=== PATIENT | female | born 1985 | race Two or more races ===

== ENCOUNTER 2019-12-23 11:01 | Emergency (ER) | payer SELFPAY ==
[~2019-12-23] VITALS: Ht 167.6 cm; Wt 72.7 kg
[2019-12-23 11:25] VITALS: BP 144/58
--- NOTE | 2019-12-23 11:45 | PHYS DOC ---
Past Medical History Past Medical History: No Pertinent History Past Surgical History: No Surgical History Smoking Status: Light Tobacco Smoker Alcohol Use: None Adult General Chief Complaint Chief Complaint: COUGH HPI HPI Patient is a 34 year old female, accompanied by her Linda, who presents to the emergency department with complaints of body aches, fatigue, dry cough, headache, and nasal congestion since yesterday. Patient's daughter translates for the patient as she does not speak Haitian. The patient denies any chest pain, palpitations, shortness of breath, wheezing, nausea, vomiting, diarrhea, abdominal pain, sore throat, or ear pain. Currently denies any pain. The patient does currently smoke cigarettes she reports that she smokes less than a pack cigarettes a day. Review of Systems Review of Systems All other ROS is negative unless otherwise noted in HPI. Allergies Allergies Allergies Coded Allergies Type Severity Reaction Last Updated Verified No Known Drug Allergies 12/23/19 No Physical Exam Physical Exam See Above Constitutional: Well developed, well nourished, no acute distress, ill appearance, obese HENT: Normocephalic, atraumatic, bilateral external ears normal, bilateral TMs normal, posterior pharynx normal oropharynx moist, nose congested with erythema and edema of the nasal turbinates bilaterally Eyes: PERRLA, conjunctiva injected bilaterally, no discharge. [] Neck: Normal range of motion, no stridor. [] Cardiovascular:Heart rate regular rhythm, no murmur [] Lungs & Thorax: Bilateral breath sounds clear to auscultation, Respirations even and unlabored, no retractions, no respiratory distress Skin: Warm, dry, no erythema, no rash. [] Back: No tenderness Extremities: No cyanosis, ROM intact Neurologic: Alert and oriented X 3, no focal deficits noted. [] Psychologic: Affect normal, judgement normal, mood normal. Current Patient Data Vital Signs Vital Signs Date Time Temp Pulse Resp B/P (MAP) Pulse Ox O2 Delivery O2 Flow Rate FiO2 12/23/19 11:25 98.9 104 16 144/58 (86) 99 Room Air 98.9 EKG EKG [] Radiology/Procedures Radiology/Procedures [] Course & Med Decision Making Course & Med Decision Making Pertinent Labs and Imaging studies reviewed. (See chart for details) dx: medical screening exam A medical screening exam was performed, patient was found to have no emergent m edical condition. The plan of care would've included influenza instructions and supportive care recommendations. However, the patient eloped after talking with registration. [] [] [] Dragon Disclaimer Dragon Disclaimer This electronic medical record was generated, in whole or in part, using a voice recognition dictation system. Departure Departure Impression: Primary Impression: Encounter for medical screening examination Disposition: HOME, SELF-CARE Condition: STABLE (pt eloped after speaking with registration) Referrals: NO PCP (PCP) Patient Instructions: Medical Screening Exam CHARITO SALES APRN Dec 23, 2019 11:45
== END 2019-12-23 11:47 | disposition home or self-care (01) ==
LOC: ER 11:01 → EDBD 11:01 → ER 11:47
DX: R05 Cough (principal); R09.81 Nasal congestion; R51 Headache; R53.83 Other fatigue; R60.0 Localized edema; L53.9 Erythematous condition, unspecified; F17.210 Nicotine dependence, cigarettes, uncomplicated
CPT/HCPCS: 99281

== ENCOUNTER → 2021-09-19 | Outpatient (CLI) | payer SELFPAY ==
[~2021-09-19] MED LIST: DOCU-109 PO; FERR325T14 PO; IBUP-1027 PO; METH10TA32 PO; OXYC1TAB15 PO; PREN1TAB9 PO
== END ==
LOC: LAB 13:12
PROVIDERS: ATTEND Obstetrics & Gynecology
DX: Z01.812 Encounter for preprocedural laboratory examination (principal); Z20.822 Contact with and (suspected) exposure to COVID-19
CPT/HCPCS: U0003; U0005

== ENCOUNTER 2021-09-20 16:45 | Inpatient (IN) | payer SELFPAY ==
[~2021-09-20] VITALS: Ht 160 cm; Wt 111.9 kg
[2021-09-20 17:00] VITALS: BP 131/67
[2021-09-20] MEDS ORDERED: IV NORMAL SALINE 1000ML BAG 1,000 ML IV SCH (18:00)
[2021-09-20] MEDS ORDERED: CITRIC ACID/SODIUM CITRATE 30 ML SOLUTION. PO ONE (18:00)
--- NOTE | 2021-09-20 18:05 | PDOC1 ---
NIP[facility] [employer]ER H&P Date of Admission: Date of Admission: Sep 20, 2021 at 16:45 History of Present Illness: EDC: 09/23/21 LMP: 12/17/20 36y @ 39.4 by L=19 presents for scheduled indxn. The pt was dxed with Yina's in Dec after a hospitalization for pneumonia. She was started on on Methimazole around that time. She stopped in Nov and Dec b/c she was concerned about its effect on . She restarted the med 02/23 after she was advised by our office. Her TSH and T4 on 02/15/21 was <0.005 and 3.71 respectively. Her Methimazole has been adjust multiple times throughout the : T4 3.71 (02/17) -> 3.66 (03/31) -> 1.24 (05/09) -> 0.52 (06/15) -> 0.57 (08/18) -> 0.91 (09/15) Meds restarted at 10 BID (02/23) -> increased to 20 BID (04/04) -> decreased to 10 BID (06/24) -> decreased to 10 daily (08/22). The pt stated that the only time she has had issues with BP was during her hospitalization last yr. She did not have any BP issues with the last . She has not been on anything for BP. She was on propranolol but that was for her thyroid issues. PMH: Yina's thyroiditis, Anemia, h/o Pneumonia PSH: denies Meds: Methimazole, PNV, Fe, ASA All: NKDA OBHx: TSVD x 1 SH: no tob, no EtOH FH: NIDDM Allergies: Coded Allergies: No Known Drug Allergies (Unverified , 12/23/19) Physical Exam: PE: GENERAL: No apparent distress. Alert and oriented. HEENT: Head normocephalic, atraumatic. NECK: Supple LUNGS: Clear to auscultation. HEART: RRR, S1, S2 present, pulses intact ABDOMEN: Soft, positive bowel sounds. EXTREMITIES: No cyanosis or edema. NEUROLOGIC: Normal speech, normal tone PSYCHIATRIC: Normal affect, normal mood. SKIN: No ulceration. FHT: 120s +acels/no decels/mLTV Hough: quiet SVE: /H Assessment & Plan: A/P 36y @ 39.4 by L=19 1.) Breech will move C/S 2.) AMA - NIPT low risk 3.) cHTN - BP nml today, no meds 4.) Yina's thyroiditis/Hyperthyroidism - on Methimazole 10 daily (08/12/21), last Free T4 0.91 (09/15/21) 5.) Elevated GTT - 1 of 4 values of 3hr GTT elevated 6.) RPR pos - Treponema pallidum Antibodies neg 7.) Qi NI 8.) TDAP given 07/07/21 9.) ASCUS/HPV neg pap 10.) Girl 11.) Limited visualization of heat, outflow tracts and several other structures 2/2 body habitus 12.) Fetus cat I FHT 13.) GBS neg BILLY ZAMUDIO MD Sep 20, 2021 18:05
[2021-09-20] MEDS ORDERED: ACETAMINOPHEN 325 MG TABLET. PO PRN (18:30)
[2021-09-20 19:11] LABS: BASO % 0 % (0-3); EOS % 1 % (0-3); HEMATOCRIT 36.8 % (36.0-47.0); LYMPH # 1.5 x10^3/uL (1.0-4.8); LYMPH % 20 % (24-48); MEAN CORPUSCULAR HEMOGLOBIN 32 pg (25-35); MEAN CORPUSCULAR HGB CONC 36 g/dL (31-37); MEAN CORPUSCULAR VOLUME 91 fL (79-100); MONO # 0.4 x10^3/uL (0.0-1.1); MONO % 6 % (0-9); NEUT # 5.5 x10^3/uL (1.8-7.7); NEUT % 74 % (31-73); PLATELET COUNT 166 x10^3/uL (140-400); RED BLOOD COUNT 4.05 x10^6/uL (3.50-5.40); RED CELL DISTRIBUTION WIDTH 12.9 % (11.5-14.5); WHITE BLOOD COUNT 7.5 x10^3/uL (4.0-11.0)
[2021-09-20] MEDS ORDERED: PREN1TAB9 PO (19:42)
[2021-09-20] MEDS ORDERED: FERR325T14 PO (19:42)
[2021-09-20] MEDS ORDERED: METH10TA32 PO (19:42)
[2021-09-20 23:28] LABS: BILIRUBIN,URINE NEGATIVE (NEG); CLARITY,URINE CLEAR; COLOR,URINE YELLOW; NITRITE,URINE NEGATIVE (NEG); PH,URINE 6.5 (<5.0-8.0); PROTEIN,URINE NEGATIVE (NEG-TRACE)
[2021-09-20 23:36] LABS: BACTERIA,URINE FEW /HPF (0-FEW); WBC,URINE 20-40 /HPF (0-4)
[2021-09-21] VITALS (10 sets, daily range): BP systolic 81–125; BP diastolic 45–70
[2021-09-21] MEDS: IV RINGERS,LACTATED 1000ML 1,000 ML IV SCH ×2 (05:55→14:00)
[2021-09-21] MEDS ORDERED: CITRIC ACID/SODIUM CITRATE 30 ML SOLUTION. PO ONE (09:30)
[2021-09-21] MEDS ORDERED: OXYTOCIN 10 UNIT/ML VIAL. ONE (10:25)
[2021-09-21] MEDS ORDERED: fentaNYL PF VIAL 100 MCG/2 ML VIAL ONE (10:25)
[2021-09-21] MEDS ORDERED: MORPHINE PF 10 MG/10 ML AMPUL. ONE (10:25)
[2021-09-21] MEDS ORDERED: ONDANSETRON PF 4 MG/2 ML VIAL. ONE (10:26)
[2021-09-21] MEDS ORDERED: KETOROLAC 30 MG/ML VIAL. ONE (10:26)
[2021-09-21] MEDS ORDERED: PHENYLEPHRINE in 0.9% NACL PF 1 MG/10 ML SYRINGE. IV ONE (11:10)
--- NOTE | 2021-09-21 11:19 | PDOC1 ---
TECHNICIAN AUTOMATIC Delivery Summary: TECHNICIAN AUTOMATIC Delivery Summary: Called to attend delivery due to breech presentation and c/s. Infant presented with good tone and received 30 seconds of delayed cord clamping prior to being brought to the radiant warmer. She was then dried and stimulated. She had a good cry, tone and heart rate, and she pinked up quickly on her own without supplemental oxygen. She was weighed and bands were placed and then she was wrapped and shown to her mother. Paulina Paiz APRN, [facility]- [facility]CHES NP Sep 21, 2021 11:19
--- NOTE | 2021-09-21 12:05 | PDOC4 ---
OPERATIVE NOTE: PreOp Dx: 1.) IUP @ 39.4 by L=19, 2.) Breech, 3.) AMA - NIPT low risk, 4.) cHTN, 5.) Yina's thyroiditis/Hyperthyroidism, 6.) Elevated GTT - 1 of 4 values of 3hr GTT elevated, 7.) RPR pos - Treponema pallidum Antibodies neg, 8.) Qi NI, 9.) ASCUS/HPV neg pap, 10.) GBS neg PostOp Dx: same Procedure: Primary LTCS Surgeon: Blake Zamudio Anesthesia: Spinal EBL: 800 cc Fluids: 1000 cc UOP: 150 cc Complications: None Findings: viable female delivered at 1100. Wt 3340 g. APGARS 8/9. Nml maternal anatomy. Path: Cord blood, Cord ABG and placenta BILLY ZAMUDIO MD Sep 21, 2021 12:05
[2021-09-21] MEDS ORDERED: 0.9 % SODIUM CHLORIDE 10 ML DISP.SYRIN. IV PRN (12:15)
[2021-09-21] MEDS ORDERED: OXYTOCIN 30 UNIT/500 ML PREMIX 500 ML IV PRN (12:15)
[2021-09-21] MEDS ORDERED: TDaP (Adacel) per PROTOCOL. MC PRN (12:15)
[2021-09-21] MEDS ORDERED: ACETAMINOPHEN 325 MG TABLET. PO PRN (12:15)
[2021-09-21] MEDS ORDERED: MMR per PROTOCOL. MC PRN (12:15)
[2021-09-21] MEDS ORDERED: diphenhydrAMINE ORAL ELIXIR 12.5 MG/5 ML ML PO PRN (12:15)
[2021-09-21] MEDS ORDERED: BENZOCAINE 20% TOPICAL AEROSOL SPRAY 57GM CAN. TP PRN (12:15)
--- NOTE | 2021-09-21 12:41 | OP ---
DATE OF SURGERY: 09/21/2021 DATE OF SURGERY: 09/21/2021 PREOPERATIVE: DIAGNOSES: 1. Intrauterine at 39 weeks and 4 days by LMP equal to a 19-week ultrasound. 2. Breech presentation. 3. Advanced maternal age. 4. Chronic hypertension. 5. Yina's thyroiditis/hypothyroidism. 6. Elevated GTT with 1/4 values with the 3-hour GTT elevated. 7. RPR positive with treponema pallidum antibodies negative. 8. Varicella nonimmune. 9. ASCUS HPV, negative Pap. 10. GBS negative. POSTOPERATIVE: DIAGNOSES: 1. Intrauterine at 39 weeks and 4 days by LMP equal to a 19-week ultrasound. 2. Breech presentation. 3. Advanced maternal age. 4. Chronic hypertension. 5. Yina's thyroiditis/hypothyroidism. 6. Elevated GTT with 1/4 values with the 3-hour GTT elevated. 7. RPR positive with treponema pallidum antibodies negative. 8. Varicella nonimmune. 9. ASCUS HPV, negative Pap. 10. GBS negative. PROCEDURE: Primary low transverse . SURGEON: Josue Alvares MD ANESTHESIA: Spinal. ESTIMATED BLOOD LOSS: 800 mL FLUIDS: 1000 mL URINE OUTPUT: 150 mL COMPLICATIONS: None. FINDINGS: Viable female delivered at 1100, weighing 3340 grams with Apgars of 8 and 9. Normal maternal anatomy noted. PATHOLOGY: Cord blood, cord ABG and placenta. BRIEF HOSPITAL COURSE: The patient is a 36-year-old 2, para 1-0-0-1, who presented to Labor and Delivery at 39 weeks and 4 days by LMP equal to a 19-week ultrasound for scheduled induction on 09/20/2021. Before induction was started, a bedside ultrasound was performed revealing the baby to be in breech position. Due to logistical reasons, the patient was placed on the schedule for the following morning for a . DESCRIPTION OF PROCEDURE: The patient was taken to the operating room where spinal anesthesia was placed without difficulty. The patient was prepped and draped in normal sterile fashion. A Pfannenstiel skin incision was made approximately 2 cm above her pubic symphysis and carried down to the underlying layer of fascia. The fascia was then nicked in the midline. Fascial incision was then extended laterally with Forde scissors. The superior aspect of fascial incision was then grasped with 2 Liss clamps, elevated, and underlying rectus muscle was dissected off with Forde scissors. Attention was then turned to the inferior aspect of fascial incision, which was grasped with 2 Liss clamps, elevated, and underlying rectus muscle was dissected off with Forde scissors. At that point, the midline of the rectus muscle was identified and . The peritoneum was then grasped with 2 hemostats and entered sharply with Metzenbaum scissors. The peritoneal incision was then extended superiorly and inferiorly with good visualization of the bladder with traction and countertraction. At that point, Alex ring was then placed in the abdomen to better visualize the lower uterine segment. A bladder flap was then created with Metzenbaum scissors. Lower uterine segment was then incised in transverse fashion with the scalpel. The hysterotomy was then extended with traction and countertraction. At that point, the placenta was exiting through the hysterotomy. The hysterotomy was explored posterior to the hysterotomy where the right leg was then found and delivered. This was then followed by delivering the left leg. At that point, the infant was rotated sacrum anterior. The infant was then delivered to the level of scapula. The right arm was swept medially and delivered followed by the left arm, which was swept medially and delivered. At that point, the infant's head was then flexed with the Bwnqwkggc-Jwriqmg-Ydpl maneuver. The rest of was delivered atraumatically. Nose and mouth were bulb suctioned. The cord was double clamped and cut and the infant was handed over to the waiting senior ui ux developer. The placenta was then removed manually. Uterus was then cleared of all clots and debris. Uterine incision was then repaired with #1 chromic in a running locked fashion. The second layer of the same suture was used to imbricate. There was one area, left of center that seemed to be bleeding. This was made hemostatic with a 2-0 chromic in a vrlfoi-[id number] stitch. This was then ran to the midline until hemostasis was achieved. At that point, the gutters were copiously irrigated and cleared of all clots and debris. Alex ring was then removed. The peritoneum was then reapproximated with 2-0 Vicryl in a running fashion. The muscle was reapproximated with 2-0 Vicryl in a running fashion. The fascia was then closed with 0 Vicryl in a running fashion. The space was then closed with 3 interrupted stitches of 2-0 Vicryl. The skin was then closed with 4-0 Monocryl was in a subcuticular manner. Sponges, laps and needles were correct x3. Three grams of Ancef were given prior to the procedure. The patient was taken to recovery room in stable condition. CHRISTINE DR: Mona TID: [id number] MTDD
[2021-09-21] MEDS: FERROUS SULFATE 325 MG TABLET. PO SCH (17:00)
[2021-09-21] MEDS: KETOROLAC 30 MG/ML VIAL. IVP PRN (17:32)
--- NOTE | 2021-09-21 20:45 | NUR ---
MD on unit. MD updated on pt. fundal assessment, pain, BP, and urine output. MD went to pt. bedside to assess pt. MD gave this RN verbal orders to give a 1000ml BOLUS of LR.
[2021-09-21] MEDS ORDERED: IV RINGERS,LACTATED 1000ML 1,000 ML IV ONE (21:30)
--- NOTE | 2021-09-21 23:15 | NUR ---
MD called and updated on pt. reports of pain when getting cleaned up, urine output post 1000ml BOLUS, and most recent VS. MD gave this RN orders to get a CBC and call back with the results.
[2021-09-21 23:56] LABS: BASO % 0 % (0-3); EOS % 0 % (0-3); HEMATOCRIT 25.1 % (36.0-47.0); HEMOGLOBIN 9.2 g/dL (12.0-15.5); LYMPH # 1.1 x10^3/uL (1.0-4.8); LYMPH % 14 % (24-48); MEAN CORPUSCULAR HEMOGLOBIN 33 pg (25-35); MEAN CORPUSCULAR HGB CONC 37 g/dL (31-37); MEAN CORPUSCULAR VOLUME 91 fL (79-100); MONO # 0.4 x10^3/uL (0.0-1.1); MONO % 5 % (0-9); NEUT # 6.4 x10^3/uL (1.8-7.7); NEUT % 81 % (31-73); PLATELET COUNT 127 x10^3/uL (140-400); RED BLOOD COUNT 2.76 x10^6/uL (3.50-5.40); RED CELL DISTRIBUTION WIDTH 12.8 % (11.5-14.5); WHITE BLOOD COUNT 7.9 x10^3/uL (4.0-11.0)
[2021-09-22] VITALS (15 sets, daily range): BP systolic 84–106; BP diastolic 37–55
--- NOTE | 2021-09-22 00:04 | NUR ---
MD called and updated on CBC results, most recent vital signs, and urine output. MD gave RN verbal orders to start maintenance fluids at 125ml/hr.
[2021-09-22] MEDS: IV RINGERS,LACTATED 1000ML 1,000 ML IV SCH ×3 (00:15→15:55)
[2021-09-22] MEDS: KETOROLAC 30 MG/ML VIAL. IVP PRN (05:23)
[2021-09-22 06:11] LABS: HEMATOCRIT 22.3 % (36.0-47.0); HEMOGLOBIN 7.9 g/dL (12.0-15.5); RED BLOOD COUNT 2.46 x10^6/uL (3.50-5.40); RED CELL DISTRIBUTION WIDTH 12.5 % (11.5-14.5); WHITE BLOOD COUNT 6.7 x10^3/uL (4.0-11.0)
--- NOTE | 2021-09-22 06:24 | NUR ---
MD called and updated on pt. assessment including most recent VS, total urine output this shift, and AM labs. MD gave orders to add on and draw a BMP.
[2021-09-22 06:59] LABS: CALCIUM 7.1 mg/dL (8.5-10.1); CREATININE 0.5 mg/dL (0.6-1.0); GFR 138.1; POTASSIUM 3.6 mmol/L (3.5-5.1)
--- NOTE | 2021-09-22 07:16 | NUR ---
MD called and updated on total urine output this shift, most recent VS, and latest lab results.
[2021-09-22] MEDS ORDERED: MULTIVITAMIN with MINERAL TABLET. PO SCH (09:00)
--- NOTE | 2021-09-22 09:05 | NUR ---
Jitendra Andrew at bedside rounding on patient, physical exam done RN discusses with provider at this time urine output, vs and labs. Provider ordered CT.
[2021-09-22] MEDS ORDERED: CONTRAST GIVEN. MC PRN (09:15)
[2021-09-22] MEDS ORDERED: IOHEXOL 300 MG/ML 100ML VIAL. IV ONE (09:15)
--- NOTE | 2021-09-22 09:26 | PDOC ---
ACCOUNT UNDERWRITER PROGRESS NOTE Date of Service: DATE: 09/22/21 TIME: 0830 Subjective: Visit completed with assistance of [employer] interpretive services. Pt. reports feeling well overall. Sitting upright in chair, denies SOB, palpitations, dizziness, or near syncope with standing/activity. Minimal pain. . Otherwise denies complaints. Objective: Objective: Appears well, in NAD. Slight palor. FF @ U, scant lochia. RLQ with increased rigidity and TTP appreciated. Dressing C/D/I. Afebrile. Decreasing MAP from admission. HR stable. I&O with 2500mL discrepancy. Inadequate UOP despite trial of fluid bolus. Vital Signs: Vital Signs Date Time Temp Pulse Resp B/P (MAP) Pulse Ox O2 Delivery O2 Flow Rate FiO2 09/21/21 15:35 98.6 76 18 125/70 (88) Room Air 98.6 09/21/21 21:00 99 Vital Signs Date Time Temp Pulse Resp B/P (MAP) Pulse Ox O2 Delivery O2 Flow Rate FiO2 09/22/21 08:41 84 101/52 (68) 09/22/21 07:30 Room Air 09/22/21 07:15 98.2 18 99 98.2 Labs: Laboratory Tests Test 09/21/21 23:45 09/22/21 05:35 09/22/21 06:39 White Blood Count 7.9 x10^3/uL (4.0-11.0) 6.7 x10^3/uL (4.0-11.0) Red Blood Count 2.76 x10^6/uL (3.50-5.40) L 2.46 x10^6/uL (3.50-5.40) L Hemoglobin 9.2 g/dL (12.0-15.5) L 7.9 g/dL (12.0-15.5) L Hematocrit 25.1 % (36.0-47.0) L 22.3 % (36.0-47.0) L Mean Corpuscular Volume 91 fL (79-100) 91 fL (79-100) Mean Corpuscular Hemoglobin 33 pg (25-35) 32 pg (25-35) Mean Corpuscular Hemoglobin Concent 37 g/dL (31-37) 35 g/dL (31-37) Red Cell Distribution Width 12.8 % (11.5-14.5) 12.5 % (11.5-14.5) Platelet Count 127 x10^3/uL (140-400) L 120 x10^3/uL (140-400) L Neutrophils (%) (Auto) 81 % (31-73) H Lymphocytes (%) (Auto) 14 % (24-48) L Monocytes (%) (Auto) 5 % (0-9) Eosinophils (%) (Auto) 0 % (0-3) Basophils (%) (Auto) 0 % (0-3) Neutrophils # (Auto) 6.4 x10^3/uL (1.8-7.7) Lymphocytes # (Auto) 1.1 x10^3/uL (1.0-4.8) Monocytes # (Auto) 0.4 x10^3/uL (0.0-1.1) Eosinophils # (Auto) 0.0 x10^3/uL (0.0-0.7) Basophils # (Auto) 0.0 x10^3/uL (0.0-0.2) Sodium Level 137 mmol/L (136-145) Potassium Level 3.6 mmol/L (3.5-5.1) Chloride Level 106 mmol/L (98-107) Carbon Dioxide Level 22 mmol/L (21-32) Anion Gap 9 (6-14) Blood Urea Nitrogen 11 mg/dL (7-20) Creatinine 0.5 mg/dL (0.6-1.0) L Estimated GFR (Cockcroft-Gault) 138.1 Glucose Level 78 mg/dL (70-99) Calcium Level 7.1 mg/dL (8.5-10.1) L Laboratory Tests 09/21/21 23:45 09/22/21 05:35 Laboratory Tests 09/22/21 06:39 Laboratory Tests 09/22/21 05:35 09/22/21 06:39 Physical Exam: GENERAL: No apparent distress. Alert and oriented. HEENT: Head normocephalic, atraumatic. NECK: Supple LUNGS: Clear to auscultation. HEART: RRR, S1, S2 present, pulses intact ABDOMEN: TTP, hypoactive BS EXTREMITIES: No cyanosis or edema. NEUROLOGIC: Normal speech, normal tone PSYCHIATRIC: Normal affect, normal mood. SKIN: No ulceration. Assessment & Plan: 1.) POD # 1, PLTCS, breech. 2.) Acute normocytic anemia 3.) Oliguria 4.) cHTN - BP WNL in 5.) Yina's thyroiditis/Hyperthyroidism - on Methimazole 10 daily (08/12/21), last Free T4 0.91 (09/15/21) 6.) s/p TDAP (07/07/21) 7.) Discussed concerns r/t significant decrease in H/H and UOP. Breakfast held pending further evaluation. Pt. amenable. Plan CT abd/pelvis w/wo contrast. Repeat CBC 1100 (6 hours from last). Orthostatic VS. AMISH LOPEZ CNM Sep 22, 2021 09:26
--- NOTE | 2021-09-22 09:41 | NUR ---
[address] via wc accompanied by RN x2. Patient tolerated. Back to room and transferred to chair per patient request. Family at bedside.
[2021-09-22] MEDS: oxyCODONE/APAP 5/325 1 TAB TABLET PO PRN ×3 (09:44→19:50)
--- NOTE | 2021-09-22 10:36 | NUR ---
RN receives call at 1031 from Radiology with results from CT scan, RN Notifies ALTON Andrew of these results at 1036. No new orders at this time.
--- NOTE | 2021-09-22 10:43 | RAD ---
EXAM: CT Abdomen and Pelvis without and with IV contrast CLINICAL HISTORY: Reason: Suspect intraabdominal bleeding s/p LTCS. POD#1 COMPARISON: none TECHNIQUE: Helical CT of the abdomen and pelvis was performed following the administration of intrave nous contrast. Axial, coronal and sagittal reformatted images were generated. PQRS compliance statement - One or more of the following individualized dose reduction techniques wer e utilized for this study: 1. Automated exposure control 2. Adjustment of the mA and/or kV according to patient size 3. Use of iterative reconstruction technique FINDINGS: Lower chest: Linear opacities lung bases likely scarring/atelectasis. Abdomen and Pelvis: Borderline hepatic hypoattenuation may be seen with fatty liver. No focal liver or splenic lesion. Sp philippe is mildly enlarged measuring 15 cm in length. Adrenal glands and pancreas are unremarkable. Symm etric nephrograms. No focal renal lesion. No renal tract calculus. No hydronephrosis. No hydroureter. Pink catheter is seen within the decompressed bladder. Changes of hysterectomy are seen. High density material is seen cephalad to the bladder, anterior to the uterus, overlying expected site of incision. This is extending into the bilateral adnex a, greater on the right. Small volume ascites without evidence to components. Evaluation for extravas ation is not excluded but is possible with a high density focus in the anterior uterine myometrium. T he uterus is enlarged and hypervascular from recently gravid state. Endometrial prominence, not well assessed by CT. High-density material seen within the rectus abdominis sheath measuring 14.3 x 6.8 x 8.5 cm, consiste nt with rectus sheath hematoma. No abdominal or pelvic lymphadenopathy. No intra-abdominal soft tissue changes, postsurgical change. Foci of soft tissue and intraperitoneal gas. Bones: No aggressive osseous lesion is seen. IMPRESSION: 1. Large rectus sheath hematoma and hematoma anterior to the uterus extending to the adnexa is seen. Given phase of contrast, evaluation for active extravasation is limited but not excluded. There is a high density focus within the anterior myometrium on the postcontrast images, possibly a source of t he peritoneal hemorrhagic products, at the suspected incision site, however again this is n ot confirmed given phase of contrast. 2. Intra-abdominal foci of gas from postoperative state. Findings discussed with patients nurse Ornelas at 09/22/2021 10:31 AM. FOR INTERNAL CODING PURPOSES RESULT CODE: Electronically signed by: Hector Velázquez MD (09/22/2021 10:41 AM) [id number]
[2021-09-22 11:05] LABS: BASO % 0 % (0-3); EOS # 0.1 x10^3/uL (0.0-0.7); EOS % 1 % (0-3); HEMATOCRIT 22.9 % (36.0-47.0); HEMOGLOBIN 8.1 g/dL (12.0-15.5); LYMPH # 0.9 x10^3/uL (1.0-4.8); LYMPH % 13 % (24-48); MEAN CORPUSCULAR HEMOGLOBIN 32 pg (25-35); MEAN CORPUSCULAR HGB CONC 35 g/dL (31-37); MEAN CORPUSCULAR VOLUME 92 fL (79-100); MONO # 0.4 x10^3/uL (0.0-1.1); MONO % 6 % (0-9); NEUT # 5.8 x10^3/uL (1.8-7.7); NEUT % 80 % (31-73); PLATELET COUNT 131 x10^3/uL (140-400); RED CELL DISTRIBUTION WIDTH 12.5 % (11.5-14.5); WHITE BLOOD COUNT 7.3 x10^3/uL (4.0-11.0)
--- NOTE | 2021-09-22 11:43 | NUR ---
RN calls CNM at this time and updates on pt.'s labs, states to redraw CBC at 1800 and 0600, limit activity to up to chair as tolerated with narda, ok for pt. to eat meals at this time. Call CNM if any signs of worsening in pt. condition.
[2021-09-22] MEDS: PRENATAL MULTIVITAMIN TABLET. PO SCH (13:00)
[2021-09-22] MEDS: FERROUS SULFATE 325 MG TABLET. PO SCH ×2 (13:00→18:27)
--- NOTE | 2021-09-22 14:43 | PDOC ---
MEMBER OF THE LEGISLATIVE COUNCIL PROGRESS NOTE Date of Service: DATE: 09/22/21 TIME: 14:23 Subjective: Doing well. independently. RN for translation. Pt. reports discomfort well managed, denies increased pain. No dizziness, weakness, palpitations, SOA, or near syncope. Objective: Objective: Appears well, in no apparent distress. Abdominal assessment unchanged, TTP over RLQ/adnexa. Tr edema to bilateral lower extremities. 2+ DTRs. Vital Signs: Vital Signs Date Time Temp Pulse Resp B/P (MAP) Pulse Ox O2 Delivery O2 Flow Rate FiO2 09/21/21 15:35 98.6 76 18 125/70 (88) Room Air 98.6 09/21/21 21:00 99 Vital Signs Date Time Temp Pulse Resp B/P (MAP) Pulse Ox O2 Delivery O2 Flow Rate FiO2 09/22/21 12:00 98.3 74 18 99/44 (62) 96 Room Air 98.3 Labs: Laboratory Tests Test 09/21/21 23:45 09/22/21 05:35 09/22/21 06:39 09/22/21 10:40 White Blood Count 7.9 x10^3/uL (4.0-11.0) 6.7 x10^3/uL (4.0-11.0) 7.3 x10^3/uL (4.0-11.0) Red Blood Count 2.76 x10^6/uL (3.50-5.40) L 2.46 x10^6/uL (3.50-5.40) L 2.50 x10^6/uL (3.50-5.40) L Hemoglobin 9.2 g/dL (12.0-15.5) L 7.9 g/dL (12.0-15.5) L 8.1 g/dL (12.0-15.5) L Hematocrit 25.1 % (36.0-47.0) L 22.3 % (36.0-47.0) L 22.9 % (36.0-47.0) L Mean Corpuscular Volume 91 fL (79-100) 91 fL (79-100) 92 fL (79-100) Mean Corpuscular Hemoglobin 33 pg (25-35) 32 pg (25-35) 32 pg (25-35) Mean Corpuscular Hemoglobin Concent 37 g/dL (31-37) 35 g/dL (31-37) 35 g/dL (31-37) Red Cell Distribution Width 12.8 % (11.5-14.5) 12.5 % (11.5-14.5) 12.5 % (11.5-14.5) Platelet Count 127 x10^3/uL (140-400) L 120 x10^3/uL (140-400) L 131 x10^3/uL (140-400) L Neutrophils (%) (Auto) 81 % (31-73) H 80 % (31-73) H Lymphocytes (%) (Auto) 14 % (24-48) L 13 % (24-48) L Monocytes (%) (Auto) 5 % (0-9) 6 % (0-9) Eosinophils (%) (Auto) 0 % (0-3) 1 % (0-3) Basophils (%) (Auto) 0 % (0-3) 0 % (0-3) Neutrophils # (Auto) 6.4 x10^3/uL (1.8-7.7) 5.8 x10^3/uL (1.8-7.7) Lymphocytes # (Auto) 1.1 x10^3/uL (1.0-4.8) 0.9 x10^3/uL (1.0-4.8) L Monocytes # (Auto) 0.4 x10^3/uL (0.0-1.1) 0.4 x10^3/uL (0.0-1.1) Eosinophils # (Auto) 0.0 x10^3/uL (0.0-0.7) 0.1 x10^3/uL (0.0-0.7) Basophils # (Auto) 0.0 x10^3/uL (0.0-0.2) 0.0 x10^3/uL (0.0-0.2) Sodium Level 137 mmol/L (136-145) Potassium Level 3.6 mmol/L (3.5-5.1) Chloride Level 106 mmol/L (98-107) Carbon Dioxide Level 22 mmol/L (21-32) Anion Gap 9 (6-14) Blood Urea Nitrogen 11 mg/dL (7-20) Creatinine 0.5 mg/dL (0.6-1.0) L Estimated GFR (Cockcroft-Gault) 138.1 Glucose Level 78 mg/dL (70-99) Calcium Level 7.1 mg/dL (8.5-10.1) L Laboratory Tests 09/21/21 23:45 09/22/21 05:35 09/22/21 10:40 Laboratory Tests 09/22/21 06:39 Laboratory Tests 09/22/21 06:39 09/22/21 10:40 Physical Exam: GENERAL: No apparent distress. Alert and oriented. HEENT: Head normocephalic, atraumatic. NECK: Supple LUNGS: Clear to auscultation. HEART: RRR, S1, S2 present, pulses intact ABDOMEN: Soft, positive bowel sounds. EXTREMITIES: No cyanosis or edema. NEUROLOGIC: Normal speech, normal tone PSYCHIATRIC: Normal affect, normal mood. SKIN: No ulceration. Assessment & Plan: Repeat CBC 1800 - add comp 2/2 persistent low UOP. Discussed imaging results and labs - stable at present. Will continue to monitor closely - instructed to notify RN if not feeling well, increased pain, SOA, palpitations, or near syncope. Pt. and spouse v/u of all. Dr. Alvares previously updated to most recent imaging and lab results. AMISH LOPEZ CNM Sep 22, 2021 14:43
[2021-09-22] MEDS: METHIMAZOLE 10 MG PO SCH (15:00)
[2021-09-22] MEDS: IBUPROFEN 400 MG TABLET. PO PRN ×2 (15:25→23:33)
[2021-09-22 18:39] LABS: BASO % 0 % (0-3); EOS # 0.1 x10^3/uL (0.0-0.7); EOS % 2 % (0-3); HEMATOCRIT 22.1 % (36.0-47.0); HEMOGLOBIN 7.8 g/dL (12.0-15.5); LYMPH % 18 % (24-48); MEAN CORPUSCULAR HEMOGLOBIN 33 pg (25-35); MEAN CORPUSCULAR HGB CONC 35 g/dL (31-37); MEAN CORPUSCULAR VOLUME 93 fL (79-100); MONO # 0.3 x10^3/uL (0.0-1.1); MONO % 5 % (0-9); NEUT # 4.5 x10^3/uL (1.8-7.7); NEUT % 76 % (31-73); PLATELET COUNT 118 x10^3/uL (140-400); RED BLOOD COUNT 2.39 x10^6/uL (3.50-5.40); RED CELL DISTRIBUTION WIDTH 12.5 % (11.5-14.5)
[2021-09-22 18:57] LABS: ALBUMIN 2.1 g/dL (3.4-5.0); ALBUMIN/GLOBULIN RATIO 0.6 (1.0-1.7); CALCIUM 7.6 mg/dL (8.5-10.1); CREATININE 0.8 mg/dL (0.6-1.0); GFR 80.3; POTASSIUM 3.2 mmol/L (3.5-5.1); TOTAL BILIRUBIN 0.5 mg/dL (0.2-1.0); TOTAL PROTEIN 5.6 g/dL (6.4-8.2)
--- NOTE | 2021-09-22 19:22 | NUR ---
RN reviews labs, urinary output, and VS with ALTON Andrew. States continue VS per protocol. Notify if any changes in condition.
[2021-09-22] MEDS: DOCUSATE SODIUM 100 MG CAPSULE. PO PRN (19:48)
[2021-09-22] MEDS ORDERED: METHIMAZOLE 10 MG PO SCH (21:00)
[2021-09-23 00:07] VITALS: BP_SYST 106; BP_SYST 109; BP_DIAS 53; BP_DIAS 54
[2021-09-23] MEDS: IV RINGERS,LACTATED 1000ML 1,000 ML IV SCH ×2 (00:15→08:15)
[2021-09-23] MEDS: oxyCODONE/APAP 5/325 1 TAB TABLET PO PRN ×5 (05:39→23:55)
[2021-09-23 05:41] VITALS: BP 121/71
--- NOTE | 2021-09-23 05:59 | NUR ---
RN spoke with ALTON Poe and updated on pt. assessment, urine output, and VS throughout the shift. ALTON states it is ok to pull ruelas catheter this am.
[2021-09-23 07:34] LABS: BASO % 0 % (0-3); EOS # 0.1 x10^3/uL (0.0-0.7); EOS % 2 % (0-3); HEMATOCRIT 21.9 % (36.0-47.0); HEMOGLOBIN 7.8 g/dL (12.0-15.5); LYMPH # 0.7 x10^3/uL (1.0-4.8); LYMPH % 12 % (24-48); MEAN CORPUSCULAR HEMOGLOBIN 33 pg (25-35); MEAN CORPUSCULAR HGB CONC 36 g/dL (31-37); MEAN CORPUSCULAR VOLUME 91 fL (79-100); MONO # 0.4 x10^3/uL (0.0-1.1); MONO % 6 % (0-9); NEUT # 4.8 x10^3/uL (1.8-7.7); NEUT % 79 % (31-73); PLATELET COUNT 129 x10^3/uL (140-400); RED CELL DISTRIBUTION WIDTH 12.5 % (11.5-14.5)
[2021-09-23] MEDS: IBUPROFEN 400 MG TABLET. PO PRN ×2 (08:22→17:31)
[2021-09-23] MEDS: FERROUS SULFATE 325 MG TABLET. PO SCH ×2 (08:22→17:31)
[2021-09-23] MEDS: PRENATAL MULTIVITAMIN TABLET. PO SCH (08:22)
[2021-09-23] MEDS: DOCUSATE SODIUM 100 MG CAPSULE. PO PRN ×2 (08:22→17:31)
[2021-09-23] MEDS: METHIMAZOLE 10 MG PO SCH (08:59)
[2021-09-23 09:18] VITALS: BP 124/60
--- NOTE | 2021-09-23 10:14 | PDOC ---
RAILWAY EQUIPMENT OPERATOR PROGRESS NOTE Date of Service: DATE: 09/23/21 TIME: 0900 Subjective: Doing well. independently. Tolerates regular diet. Pink d/c'd this AM - no void yet. Rates pain 5/10 - well managed with PO meds. Denies CP, SOA, dizziness, or near syncope with activity. Otherwise denies complaints. Objective: Objective: FFNT U-1, Scant lochia, breasts filling, nipples intact. Abdomen soft, mildly T TP over RLQ/adnexa. Dressing C/D/I. Tr edema to bilateral hands, +2 edema to bilateral feet/ankles. LCTAB. Vital Signs: Vital Signs Date Time Temp Pulse Resp B/P (MAP) Pulse Ox O2 Delivery O2 Flow Rate FiO2 09/22/21 07:15 98.2 82 18 86/50 (62) 99 Room Air 98.2 Vital Signs Date Time Temp Pulse Resp B/P (MAP) Pulse Ox O2 Delivery O2 Flow Rate FiO2 09/23/21 09:18 97.7 79 18 124/60 (81) 99 Room Air 97.7 Labs: Laboratory Tests Test 09/22/21 10:40 09/22/21 18:00 09/23/21 07:20 White Blood Count 7.3 x10^3/uL (4.0-11.0) 6.0 x10^3/uL (4.0-11.0) 6.0 x10^3/uL (4.0-11.0) Red Blood Count 2.50 x10^6/uL (3.50-5.40) L 2.39 x10^6/uL (3.50-5.40) L 2.40 x10^6/uL (3.50-5.40) L Hemoglobin 8.1 g/dL (12.0-15.5) L 7.8 g/dL (12.0-15.5) L 7.8 g/dL (12.0-15.5) L Hematocrit 22.9 % (36.0-47.0) L 22.1 % (36.0-47.0) L 21.9 % (36.0-47.0) L Mean Corpuscular Volume 92 fL (79-100) 93 fL (79-100) 91 fL (79-100) Mean Corpuscular Hemoglobin 32 pg (25-35) 33 pg (25-35) 33 pg (25-35) Mean Corpuscular Hemoglobin Concent 35 g/dL (31-37) 35 g/dL (31-37) 36 g/dL (31-37) Red Cell Distribution Width 12.5 % (11.5-14.5) 12.5 % (11.5-14.5) 12.5 % (11.5-14.5) Platelet Count 131 x10^3/uL (140-400) L 118 x10^3/uL (140-400) L 129 x10^3/uL (140-400) L Neutrophils (%) (Auto) 80 % (31-73) H 76 % (31-73) H 79 % (31-73) H Lymphocytes (%) (Auto) 13 % (24-48) L 18 % (24-48) L 12 % (24-48) L Monocytes (%) (Auto) 6 % (0-9) 5 % (0-9) 6 % (0-9) Eosinophils (%) (Auto) 1 % (0-3) 2 % (0-3) 2 % (0-3) Basophils (%) (Auto) 0 % (0-3) 0 % (0-3) 0 % (0-3) Neutrophils # (Auto) 5.8 x10^3/uL (1.8-7.7) 4.5 x10^3/uL (1.8-7.7) 4.8 x10^3/uL (1.8-7.7) Lymphocytes # (Auto) 0.9 x10^3/uL (1.0-4.8) L 1.0 x10^3/uL (1.0-4.8) 0.7 x10^3/uL (1.0-4.8) L Monocytes # (Auto) 0.4 x10^3/uL (0.0-1.1) 0.3 x10^3/uL (0.0-1.1) 0.4 x10^3/uL (0.0-1.1) Eosinophils # (Auto) 0.1 x10^3/uL (0.0-0.7) 0.1 x10^3/uL (0.0-0.7) 0.1 x10^3/uL (0.0-0.7) Basophils # (Auto) 0.0 x10^3/uL (0.0-0.2) 0.0 x10^3/uL (0.0-0.2) 0.0 x10^3/uL (0.0-0.2) Sodium Level 135 mmol/L (136-145) L Potassium Level 3.2 mmol/L (3.5-5.1) L Chloride Level 104 mmol/L (98-107) Carbon Dioxide Level 27 mmol/L (21-32) Anion Gap 4 (6-14) L Blood Urea Nitrogen 13 mg/dL (7-20) Creatinine 0.8 mg/dL (0.6-1.0) Estimated GFR (Cockcroft-Gault) 80.3 BUN/Creatinine Ratio 16 (6-20) Glucose Level 111 mg/dL (70-99) H Calcium Level 7.6 mg/dL (8.5-10.1) L Total Bilirubin 0.5 mg/dL (0.2-1.0) Aspartate Amino Transferase (AST) 19 U/L (15-37) Alanine Aminotransferase (ALT) 17 U/L (14-59) Alkaline Phosphatase 128 U/L (46-116) H Total Protein 5.6 g/dL (6.4-8.2) L Albumin 2.1 g/dL (3.4-5.0) L Albumin/Globulin Ratio 0.6 (1.0-1.7) L Laboratory Tests 09/22/21 10:40 09/22/21 18:00 09/23/21 07:20 Laboratory Tests 09/22/21 18:00 Laboratory Tests 09/22/21 18:00 09/23/21 07:20 Physical Exam: GENERAL: No apparent distress. Alert and oriented. HEENT: Head normocephalic, atraumatic. NECK: Supple LUNGS: Clear to auscultation. HEART: RRR, S1, S2 present, pulses intact ABDOMEN: Soft, positive bowel sounds. EXTREMITIES: No cyanosis. NEUROLOGIC: Normal speech, normal tone PSYCHIATRIC: Normal affect, normal mood. SKIN: No ulceration. Assessment & Plan: Afebrile, VSS. 1690mL UOP last noc - diuresing appropriately. H&H stable. Pain well controlled. Encouraged light ambulation/shower today. Abdominal splinting/binder prn comfort. Anticipate D/C home tomorrow. Pt. and family v/u of all. Visit completed with assistance of [facility] interpretive services. AMISH LOPEZ CNM Sep 23, 2021 10:14
[2021-09-23 15:00] VITALS: BP 139/46
[2021-09-23] MEDS ORDERED: OXYTOCIN 30 UNIT/500 ML PREMIX 500 ML IV ONE (15:43)
[2021-09-23] MEDS ORDERED: OXYTOCIN PREMIX 30 UNIT/500 ML NS BAG. IV ONE (16:00)
[2021-09-23 17:33] VITALS: BP 120/71
[2021-09-23 20:31] VITALS: BP 112/77
[2021-09-24] MEDS: oxyCODONE/APAP 5/325 1 TAB TABLET PO PRN ×2 (04:07→11:58)
[2021-09-24] MEDS: IBUPROFEN 400 MG TABLET. PO PRN (04:07)
[2021-09-24 04:16] VITALS: BP 124/76
[2021-09-24] MEDS: DOCUSATE SODIUM 100 MG CAPSULE. PO PRN (08:43)
[2021-09-24] MEDS: FERROUS SULFATE 325 MG TABLET. PO SCH (08:43)
[2021-09-24] MEDS: METHIMAZOLE 10 MG PO SCH (08:43)
[2021-09-24] MEDS: PRENATAL MULTIVITAMIN TABLET. PO SCH (08:43)
[2021-09-24] MEDS ORDERED: IBUP-1027 PO (09:54)
[2021-09-24] MEDS ORDERED: DOCU-109 PO (09:54)
[2021-09-24] MEDS ORDERED: OXYC1TAB15 PO (09:54)
--- NOTE | 2021-09-24 10:05 | PDOC ---
[employer]IPPER [employer] PROGRESS NOTE Date of Service: DATE: 09/24/21 TIME: 10:02 Subjective: Doing well. independently. Pain well managed with PO meds - reports discomfort much improved today. Denies CP, SOA, dizziness or near syncope with activity. Encouraged to continue FeSO4. Objective: Objective: FF U-1, Dressing C/D/I. Scant lochia. Abdomen palpates soft, TTP has improved. Breasts filling. Nipples intact. BS +. Voiding large amounts of clear, yellow urine without difficulty. Vital Signs: Vital Signs Date Time Temp Pulse Resp B/P (MAP) Pulse Ox O2 Delivery O2 Flow Rate FiO2 09/23/21 08:22 18 100 Room Air 09/23/21 09:18 97.7 79 124/60 (81) 97.7 Vital Signs Date Time Temp Pulse Resp B/P (MAP) Pulse Ox O2 Delivery O2 Flow Rate FiO2 09/24/21 04:16 98.1 82 20 124/76 (92) 100 Room Air 98.1 Physical Exam: GENERAL: No apparent distress. Alert and oriented. HEENT: Head normocephalic, atraumatic. NECK: Supple LUNGS: Clear to auscultation. HEART: RRR, S1, S2 present, pulses intact ABDOMEN: Soft, positive bowel sounds. EXTREMITIES: No cyanosis or edema. NEUROLOGIC: Normal speech, normal tone PSYCHIATRIC: Normal affect, normal mood. SKIN: No ulceration. Assessment & Plan: A/P 36y 1.) POD # 3, s/p PLTCS for Breech 2.) Anemia - FeSO4 BID 3.)cHTN - BP WNL during hospital course 4.) Yina's thyroiditis/Hyperthyroidism - on Methimazole 10 daily (08/12/21), last Free T4 0.91 (09/15/21) - continue current Rx 5.) TDAP given 07/07/21 6.) ASCUS/HPV neg pap 7.) D/C home in apparent stable condition. Discharge instructions reviewed. F/U appt scheduled with Dr. Alvares 09/29 @ [facility] - plan to remove Prevena at PP f/u. Pt. and family v/u of all. AMISH LOPEZ CNM Sep 24, 2021 10:05
[2021-09-24] MEDS ORDERED: FERR325T14 PO (10:13)
[2021-09-24 10:40] VITALS: BP 117/63
[2021-09-24 13:00] VITALS: BP 124/72
--- NOTE | 2021-09-24 13:33 | NUR ---
Pt. discharged in stable condition per w/c. Accompanied by family and nurse.
--- NOTE | 2021-09-26 12:19 | DS ---
DATE OF DISCHARGE: 09/24/2021 ADMISSION DIAGNOSES: 1. Intrauterine at 39 weeks and 4 days by LMP equal to a 19-week ultrasound. 2. Breech presentation. 3. Advanced maternal age. 4. Chronic hypertension. 5. Yina's thyroiditis/hyperthyroidism. 6. Elevated GTT with normal 3-hour GTT. 7. RPR positive with treponema pallidum antibody negative. 8. Varicella nonimmune. 9. Status post DTaP. 10. ASCUS HPV negative Pap. 11. GBS negative. DISCHARGE DIAGNOSES: 1. Intrauterine at 39 weeks and 4 days by LMP equal to a 19-week ultrasound. 2. Breech presentation. 3. Advanced maternal age. 4. Chronic hypertension. 5. Yina's thyroiditis/hyperthyroidism. 6. Elevated GTT with normal 3-hour GTT. 7. RPR positive with treponema pallidum antibody negative. 8. Varicella nonimmune. 9. Status post Tdap. 10. ASCUS HPV negative Pap. 11. GBS negative. 12. Anemia plus rectus sheath hematoma. PROCEDURE: Primary low transverse . BRIEF HOSPITAL COURSE: The patient is a 36-year-old 2, para 1-0-0-1, who presented to Labor and Delivery at 39 weeks and 4 days by LMP equal to a 19-week ultrasound for scheduled induction. The patient was diagnosed with Yina's thyroiditis in December after hospitalization for pneumonia. The patient was started on methimazole at that time. The patient stopped around November and December because she was concerned about its effect on the . When she first presented for her visit, she was found to have a thyroid hormone well out of range. The patient was restarted on the medication on 02/23/2021 and throughout her , was titrated to get her T4 within the desired range. Also, of note, the patient had some BP issues during the hospitalization last year, but has not really had any issues with her blood pressures throughout the at any point. When the patient presented for her Cervidil induction, a bedside ultrasound was performed prior to the placement and the baby was found to be breech. The patient was put on the following morning for a primary . The patient underwent said procedure without complications. See operative note for full detail. After the procedure, the patient had a urine output that was borderline just above 30 mL per hour. A repeat hemoglobin was obtained the night after the surgery revealing her hemoglobin going from admission hemoglobin of 13.0 to 9.2. The hemoglobin was then repeated in the morning and found to be 7.9 due to concerns of blood loss. A CT was ordered and obtained. The CT revealed a large rectus sheath hematoma that extended to the uterus and adnexa. A repeat hemoglobin 6 hours later revealed her hemoglobin to be stable at 8.1. No intervention was taken at that time. The patient's urine output picked up the following day and her Pink was removed. The remainder of her hospitalization was routine and by postoperative day #3, the patient was meeting all discharge criteria and was subsequently discharged home. Of note, her final hemoglobin was found to be 7.8. DISCHARGE INSTRUCTIONS: The patient was told not to lift anything greater than 20 pounds, have pelvic rest for 6 weeks, not to drive on narcotics. CALL IF: The patient was to call if she had fevers, chills, nausea, vomiting, abdominal pain or any additional questions or concerns. FOLLOWUP APPOINTMENT: The patient was to follow up on 09/29 for her incision check. DISCHARGE MEDICATIONS: The patient was given a prescription for Percocet 5 20 pills; Motrin 800 mg 30 pills; Colace 100 mg 30 pills and was increased to ferrous sulfate 325 [address]: Mona TID: [id number] MTDD
--- NOTE | 2021-09-29 09:13 | PATHOLOGY ---
[facility] Accession Number: [id number] . 01 Material submitted: . placenta - PLACENTA . 02 Diagnosis: 388 gram term placenta of an estimated 39 weeks 5 days gestation with attached membranes and umbilical cord and separate segment of umbilical cord: - Placental weight at approximate 10-15th percentile for estimated gestational age. - Chorangioma, measuring 7 mm in greatest dimension. - Villitis of unknown etiology, focal. - Chorangiosis, focal. (JPM:luan; 09/28/2021) MBR 09/29/2021 0831 Local . 02 Comment: There is no evidence of an acute chorioamnionitis. There are no infarcts. . 02 Electronically signed: . Errol Peterson MD, Pathologist NPI- [id number] . 01 Gross description: . Fixative: Formalin Labeled: Placenta Specimen received: A núñez placenta which may or may not be all present Trimmed placental weight: 388 g Umbilical cord dimensions: The attached cord measures 6.0 cm in length x 1.0 cm in diameter. Also received in the same container is an additional segment of umbilical cord (30.0 cm in length by 0.7 cm in diameter). Umbilical cord insertion: Eccentric, 7.0 cm from the nearest placental edge Number of umbilical vessels: 3 in each cord segment Umbilical cord appearance: Steward-white and unremarkable Placenta dimensions: 20.5 x 17.0 x 2.0 cm surface: Blue-purple, dusky with smaller than usual arborizing vasculature. The surface displays a full-thickness defect (7.0 x 1.5 cm) Maternal surface: Red-brown, spongy, predominantly intact and focally shaggy and disrupted (20%). The disrupted area surrounds the full-thickness defect. Cut surfaces: Maroon and spongy Abnormalities: A marginal steward lesion measuring 0.7 x 0.5 x 0.5 cm membranes: Insert marginally, are steward-purple, slimy and markedly edematous . Electric Pile Driver Operator sections are submitted as follows: A1: Umbilical cord, represented A2: membranes, represented A3: Maternal surface shavings to show areas of disruption, represented A4-A5: Full-thickness sections of placental disc to include infarction represented in A4, represented ([place]; 09/22/2021) DKA/DKA 09/28/2021 1701 Local . 02 Pathologist provided ICD-10: O43.893, Z37.0, Z3A.39 . 02 CPT . 537321 Specimen Comment: A courtesy copy of this report has been sent to [phone] Specimen Comment: Report sent to Performed at: 01 [facility] [address] [address], [place] [id number] MD Raghavendra Correa MD Phone: [phone] Performed at: 02 [facility] [address] [place], [place] [id number] MD Errol Peterson MD Phone: [phone]
== END 2021-09-24 13:33 | disposition home or self-care (01) | DRG 786 ==
LOC: 3 SO LND 16:45
PROVIDERS: ADMIT Obstetrics & Gynecology; ATTEND Obstetrics & Gynecology
PROC: 10D00Z1 Extraction of Products of Conception, Low, Open Approach (ICD-10-PCS; principal; 2021-09-21)
DX: O32.1XX0 Maternal care for breech presentation, not applicable or unspecified (principal); O90.4 Postpartum acute kidney failure; O34.211 Maternal care for low transverse scar from previous cesarean delivery; D64.9 Anemia, unspecified; O9A.22 Injury, poisoning and certain other consequences of external causes complicating childbirth; E05.90 Thyrotoxicosis, unspecified without thyrotoxic crisis or storm; O99.02 Anemia complicating childbirth; O99.284 Endocrine, nutritional and metabolic diseases complicating childbirth; O99.52 Diseases of the respiratory system complicating childbirth; S30.1XXA Contusion of abdominal wall, initial encounter; Z37.0 Single live birth; Z3A.39 39 weeks gestation of pregnancy; Z79.84 Long term (current) use of oral hypoglycemic drugs; Z87.01 Personal history of pneumonia (recurrent); O16.4 Unspecified maternal hypertension, complicating childbirth; E03.9 Hypothyroidism, unspecified
CPT/HCPCS: 36415; 74178; 80048; 80053; 81001; 85025; 85027; 86592; 86850; 86900; 86901; 87086; 88307; A6258; C1755; J0690; J1885; J2274; J2370; J2405; J2590; J3010; J7120; Q9967; G0378